=== PATIENT | female | born 1975 | race Hispanic/Latino ===

== ENCOUNTER 2017-05-22 17:48 | Emergency (ER) | payer OTHER ==
[~2017-05-22] VITALS: Ht 157.5 cm; Wt 65.8 kg
[~2017-05-22 17:48] MED LIST: AMPHETAMINE SAL20 MG PO; TRAMADOL50 MG PO
[2017-05-22 18:32] LABS: ABSOLUTE BASOPHIL COUNT 0 /CUMM (0.0-0.2); ABSOLUTE EOSINOPHIL COUNT 0.1 /CUMM (0.0-0.7); ABSOLUTE LYMPH COUNT 2.1 /CUMM (1.2-3.4); ABSOLUTE MONOCYTE COUNT 0.9 /CUMM (0.10-0.60); BASOPHIL % 0.3 % (0.0-2.0); EOSINOPHIL % 0.9 % (0-5); GRANULOCYTE % 65.8 % (42.2-75.2); HEMATOCRIT 36.4 % (37-47); MEAN CORPUSCULAR HGB 30.2 PG (27.0-31.0); MEAN CORPUSCULAR HGB CONC 33.5 G/DL (33.0-37.0); MEAN CORPUSCULAR VOLUME 90.2 FL (81.0-99.0); MEAN PLATELET VOLUME 8.8 FL (7.4-10.4); PLATELET COUNT 343 /CUMM (130-400); RBC DISTRIBUTION WIDTH 13.9 % (11.5-14.5); RED BLOOD CELL CT 4.04 /CUMM (4.20-5.40); WHITE BLOOD CELL COUNT 9.1 /CUMM (4.8-10.8)
--- NOTE | 2017-05-22 20:12 | ED GI/GU/ABDOMINAL COMPLAINT ---
History of Present Illness General Chief Complaint: Abdominal Pain/Flank Pain Stated Complaint: R SIDE ABD PAIN Source: patient Exam Limitations: no limitations Vital Signs & Intake/Output Vital Signs & Intake/Output Vital Signs Date Time Temp Pulse Resp B/P B/P Pulse O2 O2 Flow FiO2 Mean Ox Delivery Rate 05/22 2109 97.8 88 16 122/75 100 Room Air 05/22 2053 Room Air 05/22 1753 97.4 93 18 113/74 99 Room Air Allergies Coded Allergies: MDX - Codeine (THROAT CLOSURE 01/01/14) MDX - Oxycodone (From Percocet) (THROAT CLOSURE 01/01/14) Reconcile Medications Amphetamine Salt Combination (Amphetamine Salt Combo) 20 MG TAB 1 TAB PO BID ADHD (Reported) TRAMADOL HCL (Tramadol) 50 MG TAB 1 TAB PO Q6P PRN FOOT PAIN Triage Note: 41F C/O RIGHT SIDED UPPER ABD PAIN CONSTANT DEEP AND DULL X3 DAYS, REPORTS SOB BECAUSE OF THE PAIN. TILTS TO THE OTHER SIDE. +N/-V/-D AND HOTFLASHES. -DIZZINESS/LIGHTHEADED. HAS HAD GALLBLADDER REMOVED. REPORTS ELEVATED LIVER ENZYMES APPROX 6 MONTHS AGO, DENIES HEAVY ETOH USE. WAS SUPPOSED TO HAVE LIVER BIOPSY BUT NEVER HAD IT DONE. Triage Nurses Notes Reviewed? yes ? n Is pt currently ? No Onset: Abrupt Duration: day(s): (3), constant Timing: recent history Location: right lower quadrant, right upper quadrant Radiation: back No Modifying Factors: none HPI: 41-year-old female comes into the emergency room for further evaluation of right lower abdominal pain. Patient reports that the symptoms of a going on for the past few days. She denies any fever chills vomiting. Its a dull pain. It radiates up to the flank area. It is located in the right side of her abdomen. She reports that she has a history of cholecystectomy and some elevated LFTs that she was supposed to follow-up for her but she never did. She denies any dysuria or increased frequency. Pain is positional and better with certain positions. She is taking [id number] medication with minimal relief. (Nolberto Cope) Past History Travel History Traveled to [place] past 21 day No Medical History Any Pertinent Medical History? see below for history Neurological: NONE EENT: NONE Cardiovascular: NONE Respiratory: NONE Gastrointestinal: NONE Hepatic: NONE Renal: NONE Musculoskeletal: NONE Psychiatric: NONE Endocrine: NONE Surgical History Surgical History: cholecystectomy Psychosocial History Who do you live with Spouse Services at Home None What is your primary language Bulgarian Tobacco Use: Never used ETOH Use: denies use Illicit Drug Use: denies illicit drug use Family History Hx Contributory? No (Nolberto Cope) Review of Systems Review of Systems Constitutional: Reports: no symptoms. EENTM: Reports: no symptoms. Respiratory: Reports: no symptoms. Cardiovascular: Reports: no symptoms. GI: Reports: see HPI. Genitourinary: Reports: no symptoms. Musculoskeletal: Reports: no symptoms. Skin: Reports: no symptoms. Neurological/Psychological: Reports: no symptoms. Hematologic/Endocrine: Reports: no symptoms. Immunologic/Allergic: Reports: no symptoms. All Other Systems: Reviewed and Negative (Nolberto Cope) Physical Exam Physical Exam General Appearance: well developed/nourished, no apparent distress, alert Head: atraumatic, normal appearance Eyes: Bilateral: normal appearance, EOMI. Ears, Nose, Throat, Mouth: hearing grossly normal, moist mucous membrane Neck: normal inspection Respiratory: normal breath sounds, no respiratory distress Cardiovascular: regular rate/rhythm Gastrointestinal: soft, tenderness, rlq Back: normal inspection, normal range of motion, no cva tenderness Extremities: normal range of motion Neurologic/Psych: awake, alert, oriented x 3 Skin: intact, normal color Core Measures ACS in differential dx? No Sepsis Present: No Sepsis Focused Exam Completed? No (Nolberto Cope) Progress Differential Diagnosis: appendicitis, diverticulitis, endometritis, gastritis, hepatitis, hernia, ischemic bowel, ovarian cyst, ovarian torsion, pancreatitis, peptic ulcer, PUD/GERD, perforated viscous, SBO, UTI/pyelo Plan of Care: Orders Procedure Date/time Status Add-on Test (ER Only) 05/22 2102 Active CULTURE,URINE 05/22 1806 Active URINE 05/22 1801 Complete URINALYSIS 05/22 180 Complete LIPASE 05/22 180 Complete LACTIC ACID 05/22 180 Complete COMPREHENSIVE METABOLIC PANEL 05/22 1801 Complete CBC WITHOUT DIFFERENTIAL 05/22 1801 Complete Laboratory Tests 05/22/172101: Lactic Acid Cancelled 05/22/171806: Urine Color YEL, Urine Clarity HAZY H, Urine pH 6.0, Ur Specific [place] 1.025, Urine Protein NEG, Urine Ketones NEG, Urine Nitrite NEG, Urine Bilirubin NEG, Urine Urobilinogen 0.2, Ur Leukocyte Esterase SMALL H, Ur Microscopic SEDIMENT EXAMINED, Urine RBC RARE, Urine WBC 5-10 H, Ur Epithelial Cells MANY H, Urine Bacteria MANY H, Urine Mucus FEW, Urine Hemoglobin NEG, Urine Glucose NEG, Urine Test NEGATIVE 05/22/171803: Anion Gap 11, Estimated GFR > 60, BUN/Creatinine Ratio 13.3, Glucose 87, Lactic Acid 0.8, Calcium 9.8, Total Bilirubin 0.3, AST 47 H, ALT 90 H, Alkaline Phosphatase 232 H, Total Protein 7.9, Albumin 4.5, Globulin 3.4, Albumin/ Globulin Ratio 1.3, Lipase 184, CBC w Diff NO MAN DIFF REQ, RBC 4.04 L, MCV 90.2, MCH 30.2, MCHC 33.5, RDW 13.9, MPV 8.8, Gran % 65.8, Lymphocytes % 23.4, Monocytes % 9.6 H, Eosinophils % 0.9, Basophils % 0.3, Absolute Granulocytes 6.0, Absolute Lymphocytes 2.1, Absolute Monocytes 0.9 H, Absolute Eosinophils 0.1, Absolute Basophils 0 Microbiology 05/22 1806 URINE ROUT: Urine Culture - RECD Diagnostic Imaging: Viewed by Me: CT Scan. Discussed w/RAD: CT Scan. Radiology Impression: PATIENT: EVAN ARREOLA PRESENT AGE: 41 PATIENT ACCOUNT NO: [id number] : 73 LOCATION: [facility] ORDERING PHYSICIAN: Nolberto MEHTA SERVICE DATE: 05/22/17 EXAM TYPE : CAT - CT ABD & PELVIS W IV CONTRAST EXAMINATION: CT ABDOMEN AND PELVIS WITH CONTRAST CLINICAL INFORMATION: Right lower quadrant/upper quadrant pain COMPARISON: 01/25/2013 TECHNIQUE: Multidetector volumetric imaging was performed of the abdomen and pelvis following IV administration of 95 mL of Optiray 320 intravenous contrast. Sagittal and coronal reformatted images were obtained on the technologist's workstation. DLP: 265 mGy-cm FINDINGS: LUNG BASES: The visualized lung bases are unremarkable. LIVER, GALLBLADDER, AND BILIARY TREE: The liver is normal in size, shape, and attenuation. No focal hepatic lesion or biliary ductal dilatation is present. The gallbladder is absent. PANCREAS: Unremarkable. SPLEEN: Unremarkable. ADRENAL GLANDS: Unremarkable. KIDNEYS AND URETERS: The kidneys are normal in size, shape, and attenuation. No hydronephrosis, hydroureter, or calculi seen. No perinephric stranding. BLADDER: Unremarkable. GASTROINTESTINAL TRACT: The small and large bowel are unremarkable. No evidence of appendicitis. ABDOMINAL WALL: No significant hernia is appreciated. LYMPH NODES: Normal. VASCULAR: Unremarkable. PELVIC VISCERA: Retroverted uterus with a 2 cm fundal fibroid. OSSEOUS STRUCTURES: Unremarkable. IMPRESSION: No focal inflammatory process or obstruction. 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 <Electronically signed in Other Vendor System> SIGNED BY: Jian Acosta MD 05/22/172053 Initial ED EKG: none Comments: 05/22/2017 11:22:58 PM Patient has no acute abdomen on exam. No acute findings and workup. LFTs are slightly elevated which they have been in the past according to the patient. negative PERC SCORE and low probability well's criteria. No suspicion this may be atypical pulmonary embolism presentation. She has no symptoms of urinary tract infection. Culture sent off but patient will not be treated due to the fact she is not symptomatic. She understands and agrees a plan of care. No acute abdomen on exam. She needs close follow-up for LFTs. (Nolberto Cope) Departure Departure Disposition: HOME OR SELF CARE Condition: Stable Clinical Impression Primary Impression: Abdominal pain Secondary Impressions: Elevated liver enzymes Referrals: Booker Hair MD (PCP/Family) Additional Instructions: Follow-up with your speech and hearing director and primary care doctor. Return if any concerns worsening symptoms. Have your liver function tests rechecked by her PCP her speech and hearing director. Please go over all results of today's visit with your primary care doctor. Contact your primary care doctor to let them know you were here in the emergency room. There may be nonspecific findings which may not be related to your visit today here in the emergency room but may require further evaluation and chronic monitoring by your primary care doctor. If you had a laceration today the chance of foreign body always remains. You should follow-up with your primary care doctor for recheck in 3-5 days for a wound check. If you had an x-ray done there is a chance that a fracture could have been missed on initial read and you should follow-up with your primary care doctor for repeat x-rays if symptoms persist. If your blood pressure was elevated here in the emergency room please have rechecked by our primary care doctor within the next 48. If you were prescribed a narcotic here in the emergency room or any type of controlled substances you're not allowed to drive while taking this medication or operate any type of heavy machinery. Narcotics can make you feel lightheaded dizziness nausea and can cause constipation. You may need to picker a stool softener. Thank you for choosing [facility] emergency room. Please return to the emergency room immediately if you have any other concerns worsening of symptoms. Departure Forms: Customer Survey General Discharge Information (Nolberto Cope) PA/THIRD RAIL INSTALLER Co-Sign Statement Statement: ED Attending supervision documentation- [] I saw and evaluated the patient. I have also reviewed all the pertinent lab results and diagnostic results. I agree with the findings and the plan of care as documented in the PA's/THIRD RAIL INSTALLER's documentation. [X] I have reviewed the ED Record and agree with the PA's/THIRD RAIL INSTALLER's documentation. [] Additions or exceptions (if any) to the PAs/THIRD RAIL INSTALLER's note and plan are summarized below: [] (Marissa HERNANDEZ,Duncan Patel)
--- NOTE | 2017-05-22 20:54 | CT SCAN REPORT ---
EXAMINATION: CT ABDOMEN AND PELVIS WITH CONTRAST CLINICAL INFORMATION: Right lower quadrant/upper quadrant pain COMPARISON: 01/25/2013 TECHNIQUE: Multidetector volumetric imaging was performed of the abdomen and pelvis following IV administration of 95 mL of Optiray 320 intravenous contrast. Sagittal and coronal reformatted images were obtained on the technologist's workstation. DLP: 265 mGy-cm FINDINGS: LUNG BASES: The visualized lung bases are unremarkable. LIVER, GALLBLADDER, AND BILIARY TREE: The liver is normal in size, shape, and attenuation. No focal hepatic lesion or biliary ductal dilatation is present. The gallbladder is absent. PANCREAS: Unremarkable. SPLEEN: Unremarkable. ADRENAL GLANDS: Unremarkable. KIDNEYS AND URETERS: The kidneys are normal in size, shape, and attenuation. No hydronephrosis, hydroureter, or calculi seen. No perinephric stranding. BLADDER: Unremarkable. GASTROINTESTINAL TRACT: The small and large bowel are unremarkable. No evidence of appendicitis. ABDOMINAL WALL: No significant hernia is appreciated. LYMPH NODES: Normal. VASCULAR: Unremarkable. PELVIC VISCERA: Retroverted uterus with a 2 cm fundal fibroid. OSSEOUS STRUCTURES: Unremarkable. IMPRESSION: No focal inflammatory process or obstruction.
[2017-05-22 21:10] VITALS: BP 122/75
== END 2017-05-22 21:11 ==
LOC: ERH 17:48
PROVIDERS: Physician Assistant Medical
DX: R10.31 Right lower quadrant pain (principal); R10.11 Right upper quadrant pain
CPT/HCPCS: 74177; 81001; 81025; 87086